=== PATIENT | male | born 1965 | race Caucasian/White ===

== ENCOUNTER → 2019-05-23 14:14 | Outpatient (BNVA) | payer BC, SELFPAY | PROVIDERS: Family Provider Nurse Practitioner Family; PCP Nurse Practitioner Family; Visit Provider Internal Medicine Rheumatology | DX: M05.79 Rheumatoid arthritis with rheumatoid factor of multiple sites without organ or systems involvement (principal); Z79.899 Other long term (current) drug therapy | CPT/HCPCS: 36415; 80076; 82565; 85651; 86140 ==

== ENCOUNTER → 2019-05-23 14:16 | Outpatient (BNVA) | payer BC, SELFPAY | PROVIDERS: Family Provider Nurse Practitioner Family; PCP Nurse Practitioner Family; Visit Provider Internal Medicine Rheumatology | DX: M05.79 Rheumatoid arthritis with rheumatoid factor of multiple sites without organ or systems involvement (principal); Z79.899 Other long term (current) drug therapy | CPT/HCPCS: 85025 ==

== ENCOUNTER → 2019-06-11 08:31 | Outpatient (BNVA) | payer BC, SELFPAY | PROVIDERS: Family Provider Nurse Practitioner Family; PCP Nurse Practitioner Family; Visit Provider Nurse Practitioner Family | DX: E29.1 Testicular hypofunction (principal); I10 Essential (primary) hypertension; G47.00 Insomnia, unspecified; F32.9 Major depressive disorder, single episode, unspecified; G43.909 Migraine, unspecified, not intractable, without status migrainosus; M06.9 Rheumatoid arthritis, unspecified; M79.7 Fibromyalgia; L72.3 Sebaceous cyst; L71.9 Rosacea, unspecified | CPT/HCPCS: 80053; 80061; 84403; 85025 ==

== ENCOUNTER → 2019-08-01 08:30 | Outpatient (BNVA) | payer BC, SELFPAY | PROVIDERS: Family Provider Nurse Practitioner Family; PCP Nurse Practitioner Family; Visit Provider Internal Medicine Rheumatology | DX: Z79.899 Other long term (current) drug therapy (principal); M05.9 Rheumatoid arthritis with rheumatoid factor, unspecified | CPT/HCPCS: 80076; 82565; 82728; 84439; 84443; 85025; 85651; 86140 ==

== ENCOUNTER 2019-08-06 13:29 | Outpatient (CLI) | payer BC, SELFPAY ==
--- NOTE | 2019-08-06 16:15 | XR_ITS ---
WS: [id number] SCREENING DEXA SCAN [employer] CLINICAL INFORMATION: osteoporosis COMPARISON: January 31, 2016 FINDINGS: The L1-L4 bone mineral density measures 1.167. This corresponds to a T score score of -0.6 and Z scor e of -1.1. Left femoral neck bone mineral density measures 0.998 g/cm2. This corresponds to a T score of -0.7 an d Z score of -0.8. Right femoral neck bone mineral density measures 0.967 g/cm2. This corresponds to a T score -0.9of an d Z score of -1.0. Mean femoral neck bone mineral density measures 0.983 g/cm2. This corresponds to a T score of -0.8 an d Z score of -0.9. XR/XR DEXA axial skeleton* [id number] IMPRESSION: Normal bone mineralization. Patient's FRAX calculated 10 year probability for major osteoporotic fracture i s 16.0 % and osteoporotic hip fracture is 1.9%. Bone mineral density in the lumbar spine has increased 3.2% since 2016 Bone mineral density in the femoral necks has decreased -0.2% since 2016.
== END 2019-08-06 13:30 | disposition home or self-care (01) ==
LOC: RADWPI 13:33
PROVIDERS: Family Provider Nurse Practitioner Family; PCP Nurse Practitioner Family; Visit Provider Internal Medicine Rheumatology
DX: M81.0 Age-related osteoporosis without current pathological fracture (principal)
CPT/HCPCS: 77080

== ENCOUNTER → 2019-09-18 16:18 | Outpatient (BNVA) | payer BC, SELFPAY | PROVIDERS: Family Provider Nurse Practitioner Family; PCP Nurse Practitioner Family; Visit Provider Family Medicine | DX: M25.572 Pain in left ankle and joints of left foot (principal); S92.332D Displaced fracture of third metatarsal bone, left foot, subsequent encounter for fracture with routine healing; S92.342D Displaced fracture of fourth metatarsal bone, left foot, subsequent encounter for fracture with routine healing; S92.352D Displaced fracture of fifth metatarsal bone, left foot, subsequent encounter for fracture with routine healing; X58.XXXD Exposure to other specified factors, subsequent encounter | CPT/HCPCS: 73630 ==

== ENCOUNTER → 2019-10-08 15:04 | Outpatient (BNVA) | payer BC, SELFPAY | PROVIDERS: Family Provider Nurse Practitioner Family; PCP Nurse Practitioner Family; Visit Provider Internal Medicine Rheumatology | DX: M81.0 Age-related osteoporosis without current pathological fracture (principal); S92.345G Nondisplaced fracture of fourth metatarsal bone, left foot, subsequent encounter for fracture with delayed healing; M05.79 Rheumatoid arthritis with rheumatoid factor of multiple sites without organ or systems involvement; Z71.89 Other specified counseling; Z79.899 Other long term (current) drug therapy | CPT/HCPCS: 99214 ==

== ENCOUNTER 2019-12-04 11:17 | Emergency (ER) | payer BC, SELFPAY ==
[2019-12-04] VITALS (62 sets, daily range): BP systolic 79–228; BP diastolic 55–122; PULSE 75–110; RESP 10–43; TEMP 37.3; O2SAT 82–99; BMI 41.5
--- NOTE | 2019-12-04 11:40 | ECG_ITS ---
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 Measurements Intervals [place] Rate: 82 P: 53 NM: 171 QRS: 55 QRSD: 105 T: 30 QT: 372 QTc: 437 Interpretive Statements SINUS RHYTHM No previous ECG available for comparison Electronically Signed On 12-04-2019 20:21:13 CDT by Oumar Cabrera M.D. [id number]
[2019-12-04] MEDS: ondansetron 2 mg/ML SDV 2 mL 4 MG IV (12:09)
[2019-12-04] MEDS: sodium chloride 0.9% 1,000 ML 75 ML IV (12:09)
[2019-12-04] MEDS: dexamethasone 10 mg/mL INJ IVP (12:09)
[2019-12-04] MEDS: enoxaparin 100 mg/mL Syringe SUBCUT (12:09)
[2019-12-04 12:24] LABS: Basophils % 0.2 %; Hematocrit 42.8 % (42.0-52.0); Hemoglobin 14.7 g/dL (11.7-16.6); Lymphocytes # 0.3 10^3/uL (0.8-4.8); Lymphocytes % 4.4 %; Mean Corpuscular HGB Conc 34.3 g/dL (30.0-36.0); Mean Corpuscular Hemoglobin 31.6 pg (28.0-34.0); Mean Platelet Volume 9.5 fL (7.4-10.4); Monocytes # 0.4 10^3/uL (0.2-0.9); Monocytes % 6.2 %; Neutrophils # 5.01 10^3/uL (1.8-7.7); Neutrophils % 88.5 %; Nucleated Red Blood Cells % 0 %; Platelet Count 189 10^3/cmm (130-400); Red Blood Count 4.65 10^6/uL (4.1-5.3); White Blood Count 5.7 10^3/uL (4.0-10.0)
[2019-12-04 12:31] LABS: Lactic Sepsis W/Reflex 1.5 mmol/L (0.5-2.2)
[2019-12-04 12:41] LABS: Fibrinogen 712 mg/dL (174-498)
[2019-12-04 12:45] LABS: D Dimer 1.22 ug/mIFEU (0-0.59)
[2019-12-04 12:50] LABS: Troponin T (5th) Once 19 ng/L (0-15)
[2019-12-04 12:59] LABS: NT Pro B Type Natriuretic Pept 97 pg/mL (0-125); Procalcitonin 0.84 ng/mL (0-0.5)
[2019-12-04 13:12] LABS: Alanine Aminotransferase 102 U/L (0-41); Albumin Level 3.7 g/dL (3.5-5.2); Alkaline Phosphatase 329 IU/L (40-130); Anion Gap 19.5 (5-19); Aspartate Amino Transferase 115 U/L (0-40); Blood Urea Nitrogen 28 mg/dL (6-20); C Reactive Protein 24.5 mg/L (0.0-4.9); Calcium 7.7 mg/dL (8.5-10.5); Carbon Dioxide 19 mmol/L (22-29); Chloride 99 mmol/L (98-107); Globulin 2.5 g/dL (1.3-4.6); Glomerular Filtration Rate 39.4 mL/min (90-130); Glucose 97 mg/dL (65-115); Osmolality Calculated 275 mOsm/kg (285-295); Potassium 3.5 mmol/L (3.5-5.1); Sodium 134 mmol/L (136-145); Total Bilirubin 0.8 mg/dL (0.15-1.2); Total Protein 6.2 g/dL (6.6-8.7)
[2019-12-04 13:29] LABS: Ferritin 2227 ng/mL (30-400)
--- NOTE | 2019-12-04 14:10 | XR_ITS ---
WS: [id number] Portable AP upright chest, 12/04/2019 Clinical Data: dyspnea, COVID Comparison: PA and lateral chest, 11/06/2018. Findings: There is a minimal patchy opacity in the right upper lobe abutting the minor fissure and al so in the right lower lobe.. The left lung is clear. No nodules, masses or effusions are seen. The he art is normal. The pulmonary vascularity is not increased. No pneumothorax is seen. The patient has h ad an anterior cervical disc fusion of the lower cervical spine, C5-C7, and a posterior fusion of at least C4-C5. XR/XR chest 1V portable [id number] Impression: 1. Minimal patchy opacity in right upper lobe and right lower lobe which could represent minimal pneumonia. 2. Recommend repeat chest x-ray in one to 2 days.
[2019-12-04] MEDS: acetaminophen 500 mg Tablet 1000 MG PO (15:23)
[2019-12-04] MEDS: succinylcholine 20 mg/mL SDV 10mL 150 MG IVP (15:25)
--- NOTE | 2019-12-04 15:30 | PC.NURSE ---
Patient intubated at this time. 24 @ lip
[2019-12-04] MEDS: midazolam 1 mg/mL INJ 2 mL 5 MG IVP (15:37)
[2019-12-04] MEDS: sodium chloride 0.9% 1,000 ML 100 ML IV (15:55)
[2019-12-04] MEDS: vecuronium 10 mg SDV IVP (15:58)
[2019-12-04 16:03] LABS: ABG PCO2 42.5 mmHg (35-45); ABG PH Result 7.28 (7.35-7.45); Alveolar-Arterial Oxygen Gradi 76.7 mmHg (5-10); Arterial Blood Gas Hematocrit 44.8 % (42-52); Base Excess ABG -6.6 mmol/L (-2.0-2.0); Blood Gas Allen Test Pos; Blood Gas Operator Identificat CAK; Blood Gas Sample Site Radial, left; Blood Gas Sample Type Arterial; Blood Gas Tidal Volume 0.55; Carboxyhemoglobin 0.7 %THgb (0.4-20.1); Ionized Calcium Level - ABG 1.1 mmol/L (1.1-1.4); Methemoglobin 0.8 % (0.4-1.5); Oxygen Device VENT; Oxygen Saturation ABG 91.3; PO2 ABG 73.7 mmHg (80.0-100.0); Potassium Level - ABG 3.7 mmol/L (3.5-5.0); Total Hemoglobin 14.6 g/dL (14-18)
--- NOTE | 2019-12-04 16:14 | PC.NURSE ---
Updated patients concerning patients condition
--- NOTE | 2019-12-04 16:29 | W.ED.SOB ---
HPI - SOB/Dyspnea General: Chief Complaint: Shortness of Breath/Dyspnea Stated Complaint: COVID POSITIVE PATIENT Time Seen by Provider: 12/04/19 11:18 History of Present Illness: HPI Narrative: This patient is a 54-year-old male presenting with known COVID. He thinks he was exposed to a coworker around 18 November who has tested positive for COVID. He started developing symptoms on November 24. 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 He went to see his primary care on November 24 and had a COVID test done. He was also started on hydroxychloroquine and azithromycin. His COVID test came back on the or and was positive. His initial symptoms were fever, cough, headache, diarrhea. Several days ago he began having vomiting as well. For the last 4 days he has had vomiting and diarrhea as well as shortness of breath, fatigue and malaise, severe weakness, inability to eat. He continues to run fevers. He also has chronic back pain. He has history of rheumatoid arthritis and is on several disease modifying, immune suppressing medications. He also has history of hypertension and is overweight. He presented to the ER with an initial room air saturation of 80%. MD elicited complaint: shortness of breath and cough Onset (ago): day(s) () Context: recent illness and other (Known COVID exposure about 14 days ago) Timing: constant and progressively worsening Severity: severe Exacerbating factors: exertion, movement, coughing and talking Relieving factors: nothing Known history of: other (Rheumatoid arthritis) Associated symptoms: Reports cough, dizziness, fever(s), lightheadedness, myalgias, nausea, vomiting and other (Diarrhea) Treatment prior to arrival: oxygen Review of Systems General: Reports: 10 or more systems reviewed and unremarkable except in HPI and below Const: Reports: fever(s) Card: Reports: lightheadedness GI: Reports: nausea, vomiting and diarrhea Musc: Reports: back pain Neuro: Reports: headache(s) and dizziness PFSH ED PFSH: Medical History Carpal tunnel syndrome on both sides Chronic leukopenia Depression High risk medication use Hyperlipidemia Hypertension Hypogonadism in male Immunization counseling Immunodeficiency Metatarsal fracture BHUPENDRA (obstructive sleep apnea) Osteoporosis Seropositive rheumatoid arthritis Seropositive rheumatoid arthritis of multiple sites Trigger finger Surgical History Hx of colonoscopy (~2016) Hx of discectomy (~2018) Hx of spinal fusion (~2019) Previous back surgery x.3 Family History Other Cancer Hyperlipidemia Hypertension Rheumatoid arthritis Denies family history of Diabetes CAD (coronary artery disease) Chronic kidney disease (CKD) Systemic lupus erythematosus (SLE) in adult Social History Smoking and tobacco status: never smoked Second hand smoke exposure: No Alcohol intake: never Lives independently: Yes Household members: spouse and children Marital status: service: No Current occupational status: employed Current occupation: loan counselor, [employer] Current occupational exposures/hazards: No History of recent travel: No Current gender identity: Male Special benjamín needs: No Agree to transfusion: Yes Physical Exam Const: COMMON NORMALS: patient oriented x3, no limitations and alert EXAM LIMITATIONS: altered mental status (Seems very slightly confused) GENERAL APPEARANCE: cooperative, in distress and ill appearing NUTRITIONAL APPEARANCE: obese ORIENTATION/CONSCIOUSNESS: Yes awake, Yes oriented to person, Yes oriented to place and Yes oriented to time HENMT: HEAD & SCALP: normal to inspection FACE & SINUS: normal facial exam Eye: GENERAL EYE: appearance normal, both eyes and all related structures Neck/C-Spine: COMMON NORMALS: supple, no meningeal signs and no JVD Chest: COMMONS NORMALS: normal inspection of the chest Resp: EFFORT & INSPECTION: Yes tachypneic, Yes respiratory distress, Yes labored, Yes retractions and Yes uses accessory muscles AUSCULTATION: rhonchi (Scattered throughout) Cardio: COMMON NORMALS: no JVD, regular rate, regular rhythm and No murmurs present (Cardio) RATE: regular rate RHYTHM: regular rhythm GI: COMMON NORMALS: Normal to inspection, nondistended, normoactive bowel sounds present, Soft to palpation and non-tender INSPECTION: Yes normal to inspection AUSCULTATION: Yes normoactive bowel sounds PALPATION: Yes Soft to palpation Back/Pelvis: COMMON NORMALS: thoracic and lumbar spine normal to inspection Extremity: COMMON NORMALS: normal to inspection Neuro: COMMON NORMALS: patient oriented x3, moves all extremities, no focal motor deficits and no sensory deficits noted SENSORIUM/ORIENTATION: Yes alert, Yes oriented to person, Yes oriented to place and Yes oriented to time MENINGEAL SIGNS: Yes no meningeal signs Psych: COMMON NORMALS: mental status grossly normal, cooperative and normal affect Skin: COMMON NORMALS: no rashes or lesions noted and turgor normal GENERAL SKIN EXAM: no rashes or lesions noted and turgor normal Procedures Intubation Time out performed: Yes sedative: Etomidate paralytic: Succinylcholine Laryngoscope: fiber optic video scope ET Tube Size: 8 ET Tube Uncuffed: No Tube Secured Depth (cm): 24 Tube Secured Location: teeth Tube Placement Confirmation: visualized tube passing through cords, equal breath sounds bilaterally, no breath sounds over epigastrium and confirmation by capnometry Patient Tolerated Procedure: well Intubation Complications: none Course ED course: Patient was started on nasal cannula at 6 L. His sats came up to the low 90s but then gradually decreased again and he was changed to a high flow nasal cannula at 7 L. Again his sats came up and then continue to decrease again to the point where I increased his high flow nasal cannula to 10 and then 15. At that point his sats continued to be around 85% and we made the decision to intubate. I was able to speak with the patient about this decision and he is in agreement. He also is in agreement with the plan to transfer him to [facility]. He was able to speak on the phone with his prior to the intubation. Postintubation he is saturating well, and the high 90s on 70% FiO2. He was given Decadron and Lovenox upon initial evaluation. He was then given REM does severe as well. He is currently being sedated on a Versed drip. He became a little bit hypotensive after the intubation and sedation was administered. He had had a liter of fluid prior to that. He is getting another liter at 100 an hour as I do not want to fluid overload him. I do suspect though that his fluid status is low given that he has been having vomiting and diarrhea for 4 days. He was accepted to the ICU at [facility] by Dr. Baker. We are arranging for air transport. Reevaluation(s): Reevaluation #1: As we were getting ready to send the patient out I had the opportunity to speak with his on the phone. She was understandably anxious but seemed to have a good understanding of the plan of care and the reasons for transfer. She understands to call [facility] for further information regarding her 's care and condition. Vital Signs: Vital signs: Vital Signs Temperature 99.1 F 12/04/19 11:19 Pulse Rate 104 H 12/04/19 19:34 Respiratory Rate 26 H 12/04/19 19:34 Blood Pressure 167/106 12/04/19 19:34 Pulse Oximetry 99 12/04/19 19:34 MDM - SOB/Dyspnea MDM Narrative: Medical decision making narrative: Known COVID positive. Multiple comorbidities. Markedly hypoxic. He is uncomfortable with the dyspnea and also seems very slightly confused to me. He will require very close monitoring. Lab Data: Labs: Lab Results 12/04/19 12/04/19 12/04/19 Range/Units 11:46 11:46 11:46 WBC 5.7 (4.0-10.0) 10^3/ uL RBC 4.65 (4.1-5.3) 10^6/u L Hgb 14.7 (11.7-16.6) g/dL Hct 42.8 (42.0-52.0) % MCV 92.0 (80-94) fL MCH 31.6 (28.0-34.0) pg MCHC 34.3 (30.0-36.0) g/dL RDW 13.0 (12.1-15.1) % Plt Count 189 (130-400) 10^3/c mm MPV 9.5 (7.4-10.4) fL Neut % (Auto) 88.5 % Lymph % (Auto) 4.4 % [place] % (Auto) 6.2 % Eos % (Auto) 0.0 % Baso % (Auto) 0.2 % Neut # (Auto) 5.01 (1.8-7.7) 10^3/u L Lymph # (Auto) 0.3 L (0.8-4.8) 10^3/u L [place] # (Auto) 0.4 (0.2-0.9) 10^3/u L Eos # (Auto) 0.0 (0.0-0.8) 10^3/u L Baso # (Auto) 0.0 (0.0-0.1) 10^3/u L Nucleated RBC % (a uto) 0 % Nucleated RBCs # 0.0 /100WBC PT 12.40 (12.1-14.9) SECO NDS INR 0.90 (0.8-1.2) Fibrinogen 712 H (174-498) mg/dL D-Dimer 1.22 H (0-0.59) ug/mIFE U Specimen Type Sample Site ABG pH (7.35-7.45) ABG pCO2 (35-45) mmHg ABG pO2 (80.0-100.0) mmH g ABG HCO3 (22-26) mmol/L ABG O2 Saturation ABG Base Excess (-2.0-2.0) mmol/ L Art Test A-a O2 Gradient (5-10) mmHg Hematocrit (42-52) % Hgb O2 Saturation (95-100) % Carboxyhemoglobin (0.4-20.1) %THgb Methemoglobin (0.4-1.5) % Total Hemoglobin (14-18) g/dL Ionized Calcium (1.1-1.4) mmol/L O2 Delivery Device O2 Liters/Min % FiO2 % Tidal Volume PEEP cmH20 Events Specialist ID Sodium 134 L (136-145) mmol/L Potassium 3.5 (3.5-5.1) mmol/L Chloride 99 (98-107) mmol/L Carbon Dioxide 19 L (22-29) mmol/L Anion Gap 19.5 H (5-19) BUN 28 H (6-20) mg/dL Creatinine 1.8 H (0.7-1.2) mg/dL GFR Calculation 39.4 L (90-130) mL/min Glucose 97 (65-115) mg/dL Calculated Osmolal ity 275 L (285-295) mOsm/k g Lactic Acid (0.5-2.2) mmol/L Calcium 7.7 L (8.5-10.5) mg/dL Ferritin 2227 H (30-400) ng/mL Total Bilirubin 0.8 (0.15-1.2) mg/dL AST 115 H (0-40) U/L ALT 102 H (0-41) U/L Alkaline Phosphata se 329 H (40-130) IU/L Troponin T Gen 5 n g/L (0-15) ng/L C-Reactive Protein 24.5 H (0.0-4.9) mg/L NT-Pro-B Natriuret Pep 97 (0-125) pg/mL Total Protein 6.2 L (6.6-8.7) g/dL Albumin 3.7 (3.5-5.2) g/dL Globulin 2.5 (1.3-4.6) g/dL Procalcitonin 0.84 H (0-0.5) ng/mL 12/04/19 12/04/19 12/04/19 Range/Units 11:46 11:46 15:52 WBC (4.0-10.0) 10^3/ uL RBC (4.1-5.3) 10^6/u L Hgb (11.7-16.6) g/dL Hct (42.0-52.0) % MCV (80-94) fL MCH (28.0-34.0) pg MCHC (30.0-36.0) g/dL RDW (12.1-15.1) % Plt Count (130-400) 10^3/c mm MPV (7.4-10.4) fL Neut % (Auto) % Lymph % (Auto) % [place] % (Auto) % Eos % (Auto) % Baso % (Auto) % Neut # (Auto) (1.8-7.7) 10^3/u L Lymph # (Auto) (0.8-4.8) 10^3/u L [place] # (Auto) (0.2-0.9) 10^3/u L Eos # (Auto) (0.0-0.8) 10^3/u L Baso # (Auto) (0.0-0.1) 10^3/u L Nucleated RBC % (a uto) % Nucleated RBCs # /100WBC PT (12.1-14.9) SECO NDS INR (0.8-1.2) Fibrinogen (174-498) mg/dL D-Dimer (0-0.59) ug/mIFE U Specimen Type Arterial Sample Site Radial, left ABG pH 7.28 L (7.35-7.45) ABG pCO2 42.5 (35-45) mmHg ABG pO2 73.7 L (80.0-100.0) mmH g ABG HCO3 20.0 L (22-26) mmol/L ABG O2 Saturation 91.3 ABG Base Excess -6.6 L (-2.0-2.0) mmol/ L Art Test Pos A-a O2 Gradient 76.7 H (5-10) mmHg Hematocrit 44.8 (42-52) % Hgb O2 Saturation 90.0 L (95-100) % Carboxyhemoglobin 0.7 (0.4-20.1) %THgb Methemoglobin 0.8 (0.4-1.5) % Total Hemoglobin 14.6 (14-18) g/dL Ionized Calcium 1.1 (1.1-1.4) mmol/L O2 Delivery Device Vent O2 Liters/Min 100.0 % FiO2 100.0 % Tidal Volume 0.55 PEEP 10.0 cmH20 Events Specialist ID Cak Sodium 138.0 (136-145) mmol/L Potassium 3.7 (3.5-5.1) mmol/L Chloride (98-107) mmol/L Carbon Dioxide (22-29) mmol/L Anion Gap (5-19) BUN (6-20) mg/dL Creatinine (0.7-1.2) mg/dL GFR Calculation (90-130) mL/min Glucose 124.0 H (65-115) mg/dL Calculated Osmolal ity (285-295) mOsm/k g Lactic Acid 1.5 (0.5-2.2) mmol/L Calcium (8.5-10.5) mg/dL Ferritin (30-400) ng/mL Total Bilirubin (0.15-1.2) mg/dL AST (0-40) U/L ALT (0-41) U/L Alkaline Phosphata se (40-130) IU/L Troponin T Gen 5 n g/L 19 H (0-15) ng/L C-Reactive Protein (0.0-4.9) mg/L NT-Pro-B Natriuret Pep (0-125) pg/mL Total Protein (6.6-8.7) g/dL Albumin (3.5-5.2) g/dL Globulin (1.3-4.6) g/dL Procalcitonin (0-0.5) ng/mL Critical Care Time Critical Care Time: Critical Care Time: Yes (60) Total Critical Care Time: 60 Attestation: I provided critical care to this patient is a total of 60 minutes. This was exclusive of other procedures. Care of this patient required multiple and frequent re-evaluations. Multiple consultations with respiratory therapy regarding options for treatment. Discussion with the patient himself about transfer and intubation. Evaluation of labs and x-rays. Orders for medications for intubation and sedation. Discharge Plan Discharge Patient Disposition: Xfer Other Referrals: Elsi Davis FNP [Primary Care Provider] - Discharge Date/Time: 12/04/19 19:34 Coding Level of Care Code ED [employer] Package Symbol Stamper for Chg Fwd Exam Comprehensive
== END 2019-12-04 19:34 | disposition other institution (70) ==
PROVIDERS: Emergency Provider Emergency Medicine; PCP Nurse Practitioner Family
DX: U07.1 COVID-19 (principal); E78.5 Hyperlipidemia, unspecified; I10 Essential (primary) hypertension
CPT/HCPCS: 12345; 31500; 36600; 51702; 71045; 80051; 80053; 82728; 82810; 83605; 83880; 83986; 84145; 84484; 85025; 85378; 85384; 85610; 86140; 87040; 87070; 87205; 93005; 94002; 94799; 96365; 96366; 96367; 96372; 96375; 99284; 99291; J0330; J1100; J1650; J2250; J2405; J3490; J7030